=== PATIENT | female | born 1985 | race Caucasian/White ===

== ENCOUNTER 2017-01-05 00:59 | Emergency (ER) | payer BC, MEDICAID ==
[2017-01-05 01:43] VITALS: RESP 18; O2SAT 98
[2017-01-05] MEDS ORDERED: Sodium Chloride 0.9% 1,000 ML IV ONE (01:56)
[2017-01-05] MEDS ORDERED: Sodium Chloride 0.9% 1,000 ML ONE ×2 (02:27→03:59)
[2017-01-05 02:37] LABS: BASO % 0.5 % (0.0-2.0); EOS % 0.2 % (0.0-4.0); HEMATOCRIT 39.3 % (34.0-47.0); LYMPH # 2.4 K/uL (1.0-4.3); LYMPH % 27.9 % (20.0-40.0); MEAN CELL VOLUME 90.3 fL (81.0-99.0); MEAN CORPUSCULAR HGB CONC 35.5 g/dL (33.0-37.0); MEAN PLATELET VOLUME 8.2 fL (7.2-11.7); MONO # 0.7 K/uL (0.0-0.8); MONO % 7.5 % (0.0-10.0); NRBC % 0.1 % (0.0-2.0); RED CELL DISTRIBUTION WIDTH 12.5 % (11.5-14.5); WHITE BLOOD COUNT 8.8 K/uL (4.8-10.8)
[2017-01-05 02:49] LABS: CHLORIDE 104 mmol/L (98-107)
[2017-01-05 02:50] LABS: POTASSIUM 4.2 mmol/L (3.6-5.2); SODIUM 138 mmol/L (132-148)
[2017-01-05 02:52] LABS: AST/SGOT 41 U/L (14-36); BILIRUBIN,TOTAL 0.9 mg/dL (0.2-1.3); CARBON DIOXIDE 15 mmol/L (22-30); GFR AFRICAN-AMERICAN > 60
[2017-01-05 02:53] LABS: ALKALINE PHOSPHATASE 141 U/L (38-126); ALT/SGPT 66 U/L (9-52); BLOOD UREA NITROGEN 8 mg/dL (7-17); CALCIUM 9.4 mg/dl (8.6-10.4); GLUCOSE,RANDOM 74 mg/dL (65-105); TOTAL PROTEIN 8.3 g/dL (6.3-8.3)
[2017-01-05] MEDS ORDERED: Sodium Chloride 0.9% 1,000 ML IV STA (03:52)
[2017-01-05 04:37] LABS: RBC URINE 6 /hpf (0-3); URINE BACTERIA FEW (<OCC); URINE BILIRUBIN NEGATIVE (NEGATIVE); URINE BLOOD NEGATIVE (NEGATIVE); URINE COLOR Yellow (YELLOW); URINE GLUCOSE (UA) NORMAL (Normal); URINE KETONE 2+ mg/dL (NEGATIVE); URINE LEUKOCYTE ESTERASE TRACE Leu/uL (Negative); URINE PROTEIN 2+ mg/dL (NEGATIVE); WBC URINE 9 /hpf (0-5)
--- NOTE | 2017-01-05 05:21 | C.PDOC ---
History Of Present Illness Patient is a 31 year old female who presents to the ER with a complaint of vomiting since Tuesday. Patient was given Rx by her OB for Dicliges but with no improvement. Patient reports she is 7 weeks , . Denies abdominal pain, urinary symptoms, dizziness, fever, chills, UTI sx, vaginal bleeding or discharge. Time Seen by Provider: 01/05/17 01:51 Chief Complaint (Nursing): GI Problem History Per: Patient History/Exam Limitations: no limitations Onset/Duration Of Symptoms: Days (Since Tuesday) Current Symptoms Are (Timing): Still Present Quality Of Discomfort: Unable To Describe Associated Symptoms: Vomiting. denies: Fever, Chills, Urinary Symptoms, Other ( Abdominal pain) Exacerbating Factors: None Alleviating Factors: None Recent travel outside of the [place]: No Abnormal Vaginal Bleeding: No : 5 Para: 3 Past Medical History Reviewed: Historical Data, Nursing Documentation, Vital Signs Vital Signs: Last Vital Signs Temp 98.2 F 01/05/17 05:28 Pulse 94 H 01/05/17 05:28 Resp 18 01/05/17 05:28 BP 111/75 01/05/17 05:28 Pulse Ox 98 01/05/17 05:28 - Medical History PMH: No Chronic Diseases Surgical History: No Surg Hx Family History: States: Unknown Family Hx - Social History Hx Alcohol Use: No Hx Substance Use: No - Immunization History Hx Tetanus Toxoid Vaccination: No Hx Influenza Vaccination: No Hx Pneumococcal Vaccination: No Review Of Systems Constitutional: Negative for: Fever, Chills Gastrointestinal: Positive for: Vomiting. Negative for: Abdominal Pain Genitourinary: Negative for: Dysuria, Frequency, Incontinence, Hematuria Physical Exam - Physical Exam Appears: Non-toxic Skin: Normal Color, Warm, Dry Head: Atraumatic, Normacephalic Eye(s): bilateral: Normal Inspection, PERRL, Other (no pallor of conjunctivae) Ear(s): Left: Other, Bilateral: Normal Oral Mucosa: Moist Lips: Other (Dry) Throat: Normal, No Erythema, No Exudate Neck: Normal, Supple Chest: Symmetrical, No Tenderness Cardiovascular: Rhythm Regular, No Murmur Respiratory: Normal Breath Sounds, No Rales, No Rhonchi, No Wheezing Gastrointestinal/Abdominal: Bowel Sounds (normal), Soft, No Tenderness, No Distention, No Guarding, No Rebound Extremity: Normal ROM Extremity: Bilateral: Atraumatic Neurological/Psych: Oriented x3, Normal Speech, Normal Cognition Gait: Steady ED Course And Treatment - Laboratory Results Result Diagrams: 01/05/17 02:35 01/05/17 02:35 O2 Sat by Pulse Oximetry: 98 (Room air) Pulse Ox Interpretation: Normal Progress Note: IV fluids( 2 L Of NaCl) and zofran PO x 2 ordered. PO challenge given with success. Patient is resting comfortably, and is in no acute distress. Abdomen remains soft non tender. Patient was instructed to follow up with PMD in 1-2 days for further evaluation. Reevaluation Time: 05:36 Reassessment Condition: Improved Disposition Counseled Patient/Family Regarding: Diagnosis, Need For Followup, Rx Given - Disposition Referrals: Private OB, OB/ [facility] [Other] Disposition: HOME/ ROUTINE Disposition Time: 05:41 Condition: STABLE Additional Instructions: Please follow up with your OB Take small amount of fluids at a time/ crackers, plain bread, tea, juices Take meds as directed Return to er if worse Prescriptions: Ondansetron [Zofran Odt] 4 mg PO TID #14 odt Instructions: Hyperemesis Gravidarum (ED) - Clinical Impression Clinical Impression: Hyperemesis gravidarum - Scribe Statement The provider has reviewed the documentation as recorded by the Scribshahab Marie All medical record entries made by the Scribe were at my direction and personally dictated by me. I have reviewed the chart and agree that the record accurately reflects my personal performance of the history, physical exam, medical decision making, and the department course for this patient. I have also personally directed, reviewed, and agree with the discharge instructions and disposition.
[2017-01-05 05:34] VITALS: BP 111/75; PULSE 94; TEMP 98.2
== END 2017-01-05 05:48 | disposition home or self-care (01) ==
LOC: C.ER 00:59
DX: O21.0 Mild hyperemesis gravidarum (principal); Z3A.01 Less than 8 weeks gestation of pregnancy
CPT/HCPCS: 80053; 81001; 83690; 84702; 84703; 85025; 96361; 96374; 96376; 99285; J2405; J7040

== ENCOUNTER 2017-04-29 17:50 | Emergency (ER) | payer BC ==
[2017-04-29 18:13] VITALS: RESP 18; O2SAT 100
[2017-04-29] MEDS ORDERED: Sodium Chloride 0.9% 1,000 ML IV ONE (18:41)
[2017-04-29] MEDS ORDERED: Sodium Chloride 0.9% 1,000 ML ONE (18:45)
[2017-04-29 18:51] LABS: BASO # 0.1 K/uL (0.0-0.2); BASO % 0.9 % (0.0-2.0); EOS % 0.2 % (0.0-4.0); HEMATOCRIT 35.2 % (34.0-47.0); LYMPH # 3.1 K/uL (1.0-4.3); MEAN CELL VOLUME 88.4 fL (81.0-99.0); MEAN CORPUSCULAR HEMOGLOBIN 31.2 pg (27.0-31.0); MEAN CORPUSCULAR HGB CONC 35.2 g/dL (33.0-37.0); MEAN PLATELET VOLUME 8.6 fL (7.2-11.7); MONO # 0.5 K/uL (0.0-0.8); MONO % 7.2 % (0.0-10.0); RED CELL DISTRIBUTION WIDTH 12.2 % (11.5-14.5); WHITE BLOOD COUNT 6.5 K/uL (4.8-10.8)
[2017-04-29 18:59] LABS: CHLORIDE 101 mmol/L (98-107); POTASSIUM 3.7 mmol/L (3.6-5.2); SODIUM 133 mmol/L (132-148)
[2017-04-29 19:01] LABS: GFR AFRICAN-AMERICAN > 60
[2017-04-29 19:02] LABS: ALB/GLOB RATIO 1.2 (1.0-2.1); ALKALINE PHOSPHATASE 101 U/L (38-126); ALT/SGPT 45 U/L (9-52); AST/SGOT 20 U/L (14-36); BILIRUBIN,TOTAL 0.5 mg/dL (0.2-1.3); BLOOD UREA NITROGEN 5 mg/dL (7-17); CALCIUM 9.1 mg/dl (8.6-10.4); CARBON DIOXIDE 20 mmol/L (22-30); GLUCOSE,RANDOM 76 mg/dL (65-105); TOTAL PROTEIN 7.5 g/dL (6.3-8.3)
[2017-04-29 19:06] LABS: RBC URINE 831 /hpf (0-3); URINE BACTERIA RARE (<OCC); URINE BILIRUBIN NEGATIVE (NEGATIVE); URINE BLOOD 3+ (NEGATIVE); URINE COLOR Yellow (YELLOW); URINE GLUCOSE (UA) NORMAL (Normal); URINE KETONE 2+ mg/dL (NEGATIVE); URINE LEUKOCYTE ESTERASE NEG Leu/uL (Negative); URINE PROTEIN 2+ mg/dL (NEGATIVE); URINE UROBILINOGEN NORMAL mg/dL (0.2-1.0); WBC URINE 1 /hpf (0-5)
--- NOTE | 2017-04-29 20:07 | C.PDOC ---
History Of Present Illness Pt had a transvaginal US by her Auto Mechanic today that showed a live IUP. Later in the day she started having vaginal bleeding, but no clots or tissue. Time Seen by Provider: 04/29/17 19:03 Chief Complaint (Nursing): Female Genitourinary History Per: Patient Onset/Duration Of Symptoms: Hrs (today) Current Symptoms Are (Timing): Better Severity: Moderate Quality Of Discomfort: Cramping Alleviating Factors: None Additional History Per: Prior Records Abnormal Vaginal Bleeding: Yes Past Medical History Reviewed: Historical Data, Nursing Documentation, Vital Signs Vital Signs: Last Vital Signs Temp 98.0 F 04/29/17 20:15 Pulse 70 04/29/17 20:15 Resp 18 04/29/17 20:15 BP 93/60 L 04/29/17 20:15 Pulse Ox 100 04/29/17 20:15 - Medical History PMH: No Chronic Diseases Surgical History: No Surg Hx Family History: States: Unknown Family Hx - Social History Hx Tobacco Use: No Hx Alcohol Use: No Hx Substance Use: No - Immunization History Hx Tetanus Toxoid Vaccination: No Hx Influenza Vaccination: No Hx Pneumococcal Vaccination: No Review Of Systems Except As Marked, All Systems Reviewed And Found Negative. Constitutional: Negative for: Fever, Weakness Cardiovascular: Negative for: Chest Pain, Light Headedness Respiratory: Negative for: Shortness of Breath Gastrointestinal: Positive for: Nausea Genitourinary: Positive for: Vaginal Bleeding. Negative for: Dysuria Musculoskeletal: Negative for: Neck Pain Skin: Negative for: Rash Neurological: Negative for: Weakness, Numbness, Seizures Physical Exam - Physical Exam Appears: Non-toxic, No Acute Distress Skin: Normal Color, Warm, Dry, No Rash Head: Atraumatic, Normacephalic Eye(s): bilateral: Normal Inspection, PERRL, EOMI Neck: Normal ROM, Supple Cardiovascular: Rhythm Regular Respiratory: Normal Breath Sounds, No Accessory Muscle Use Gastrointestinal/Abdominal: Soft, No Tenderness Back: No CVA Tenderness Extremity: Normal ROM Neurological/Psych: Oriented x3, Normal Motor, Normal Sensation ED Course And Treatment - Laboratory Results Result Diagrams: 04/29/17 18:46 04/29/17 18:46 Lab Interpretation: No Acute Changes Urine POC: Positive O2 Sat by Pulse Oximetry: 100 Pulse Ox Interpretation: Normal Progress - Interventions Interventions:: Observation, Intravenous fluid - Medications Administered Oral: Acetaminophen Intravenous: Antiemetic - Data Reviewed Data Reviewed: Lab, Old records - Patient Status Patient status: Partially improved - Continuity of Care Discussed patient case with:: Patient, Family-HIPPA compliant, ED Nurse - Patient Plan Patient Plan: Discharge, F/U with PCP Disposition Counseled Patient/Family Regarding: Studies Performed, Diagnosis, Need For Followup, Rx Given - Disposition Referrals: Ibrahima Dwyer MD [Staff Provider] - Disposition: HOME/ ROUTINE Disposition Time: 21:13 Condition: STABLE Additional Instructions: Follow up with your Auto Mechanic doctor for further evaluation and treatment. Return to the ER if you develop dizziness, fever, heavy bleeding, worsening of symptoms or if you have any other concerns. Prescriptions: Ondansetron [Zofran] 4 mg PO Q8H PRN #15 tab PRN Reason: Nausea/Vomiting Instructions: Threatened Miscarriage (ED) Forms: [employer] (Bulgarian) - Clinical Impression Clinical Impression: Threatened
[2017-04-29 20:16] VITALS: TEMP 98
[2017-04-29 21:23] VITALS: BP 106/69; PULSE 81
== END 2017-04-29 21:22 | disposition home or self-care (01) ==
LOC: C.ER 17:50
DX: O20.0 Threatened abortion (principal); Z3A.00 Weeks of gestation of pregnancy not specified
CPT/HCPCS: 80053; 81001; 84702; 84703; 85025; 86850; 86900; 96361; 96374; 99285; J2405; J7040

== ENCOUNTER 2017-11-14 17:41 | Inpatient (IN) | payer BC ==
[2017-11-14] MEDS: Lactated Ringer's 1,000 ML IV SCH ×2 (18:42→19:45)
[2017-11-14] MEDS ORDERED: Penicillin G Potassium 5 MU in Dextrose 5% In Water 50 ML IV ONE (19:00)
[2017-11-14 19:03] LABS: BASO % 0.3 % (0.0-2.0); EOS % 0.5 % (0.0-4.0); HEMOGLOBIN 9.8 g/dL (11.0-16.0); LYMPH # 2.1 K/uL (1.0-4.3); LYMPH % 33.9 % (20.0-40.0); MEAN CELL VOLUME 84.4 fL (81.0-99.0); MEAN CORPUSCULAR HEMOGLOBIN 28.7 pg (27.0-31.0); MONO # 0.5 K/uL (0.0-0.8); MONO % 7.7 % (0.0-10.0); NEUT # 3.5 K/uL (1.8-7.0); NEUT % 57.6 % (50.0-75.0); NRBC % 0.1 % (0.0-2.0); RBC 3.4 Mil/uL (3.80-5.20); RED CELL DISTRIBUTION WIDTH 15.1 % (11.5-14.5); WHITE BLOOD COUNT 6.1 K/uL (4.8-10.8)
[2017-11-14 19:10] LABS: SQUAMOUS EPITHIAL 5 /hpf (0-5); URINE BILIRUBIN NEGATIVE (NEGATIVE); URINE BLOOD 1+ (NEGATIVE); URINE CLARITY Hazy (Clear); URINE COLOR Yellow (YELLOW); URINE GLUCOSE (UA) NORMAL (Normal); URINE LEUKOCYTE ESTERASE TRACE Leu/uL (Negative); URINE PROTEIN NEGATIVE (NEGATIVE); URINE UROBILINOGEN NORMAL mg/dL (0.2-1.0)
[2017-11-14] MEDS ORDERED: DiphenhydrAMINE 50 mg/ml Inj IVP STA (20:14)
[2017-11-14] MEDS ORDERED: Nalbuphine 20 mg/ml Inj (1 ml) IVP PRN (20:15)
[2017-11-14 20:31] LABS: ALB/GLOB RATIO 0.9 (1.0-2.1); ALBUMIN 3.2 g/dL (3.5-5.0); AST/SGOT 21 U/L (14-36); BLOOD UREA NITROGEN 8 mg/dL (7-17); CALCIUM 8.4 mg/dl (8.6-10.4); GFR AFRICAN-AMERICAN > 60; GFR NON-AFRICAN AMERICAN > 60
[2017-11-14 20:37] LABS: ALT/SGPT < 6 U/L (9-52)
[2017-11-14] MEDS ORDERED: DiphenhydrAMINE 50 mg/ml Inj IVP ONE (20:45)
[2017-11-14 21:36] LABS: RAPID PLASMA REAGIN NONREACTIVE (NONREACTIVE)
[2017-11-15] MEDS ORDERED: Fentanyl/Bupivacaine HCl 250 ML EPI ONE (00:12)
[2017-11-15] MEDS ORDERED: Bupivacaine HCl 0.5% PF (10 ml) Inj ONE (00:40)
[2017-11-15] MEDS ORDERED: Oxytocin 20 units in LR 2,000 ML IV ONE (06:27)
[2017-11-15 20:24] VITALS: RESP 20
[2017-11-16 08:05] LABS: BASO % 0.5 % (0.0-2.0); EOS # 0.1 K/uL (0.0-0.7); EOS % 1.4 % (0.0-4.0); HEMOGLOBIN 9.2 g/dL (11.0-16.0); LYMPH # 3.1 K/uL (1.0-4.3); LYMPH % 40.2 % (20.0-40.0); MEAN CELL VOLUME 84.6 fL (81.0-99.0); MEAN CORPUSCULAR HEMOGLOBIN 28.7 pg (27.0-31.0); MEAN PLATELET VOLUME 10.1 fL (7.2-11.7); MONO # 0.5 K/uL (0.0-0.8); NEUT % 50.9 % (50.0-75.0); NRBC % 0.1 % (0.0-2.0); RBC 3.19 Mil/uL (3.80-5.20); RED CELL DISTRIBUTION WIDTH 15.5 % (11.5-14.5); WHITE BLOOD COUNT 7.8 K/uL (4.8-10.8)
[2017-11-16] MEDS ORDERED: Benzocaine/Menthol 20%-0.5% Topical Spray (60 ml) EXT SCH (14:00)
--- NOTE | 2017-11-17 02:48 | PN ---
DATE: SUBJECTIVE: The patient has no complaints. OBJECTIVE: VITAL SIGNS: Stable. She is afebrile. ABDOMEN: Soft. Fundus is firm. Lochia is intact. EXTREMITIES: Nontender with a negative Balbir sign, and no evidence of DVT. CHEST: Clear. BREASTS: Reveal no engorgement. CARDIAC: Reveals normal heart sounds without any murmurs. LUNGS: Clear. ASSESSMENT: The patient is status post normal spontaneous vaginal delivery. PLAN: To encourage ambulation. Ibrahima Dwyer MD
[2017-11-17 17:14] VITALS: BP 124/74; PULSE 63; TEMP 97.5; O2SAT 100
--- NOTE | 2017-12-01 16:56 | DS ---
HOSPITAL COURSE: The patient is a 31-year-old female 3, para 2, who was admitted for induction. The patient underwent a normal spontaneous vaginal delivery on 11/15/2017, delivered a live male , Apgars 9 at one minute and 9 at five minutes. She was discharged home on day #2 on Vitafol Ultra, to be followed up in the office in six weeks. Ibrahima Dwyer MD
--- NOTE | 2017-12-02 10:24 | OBADHP ---
Datetime: 11/14/2017 18:09 Admit Comment, IP Provider: @ 40.3 wks GA sent by PMD for IOL reports pressure and crmaping pain, increasing intensity and freuqency, dneis lof, vb, +FM. 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: hxof ovarina cyst, lap pap 2016, dnies sti, fibroid PMH: dneis PSH: dneis FHX: non contibutory MEDS: PNVS NKDA SHX: negatiave eoth/tobacc/drugs A/P @ 40.3 wks GA iol gbs postive admit to pmd npo, ivf admission labs pnc gbs proophylxis cervidl pain manamgnet plan as per Dr Ibrahim, PMD Pelvic Type - PN: Adequate Extremities - PN: Normal Abdomen - PN: Normal Back - PN: Normal Breast - PN: Not Done Lungs - PN: Normal Heart - PN: Normal Thyroid - PN: Not Done Neurologic - PN: Normal HEENT - PN: Normal General - PN: Normal Presentation-Admit: Vertex FHR - Baseline A Provider: 125 Membranes, Provider: Intact Contraction Comments Provider: irregaulr Gestation - Est Wks by US: 40.3 Vital Signs Provider: Reviewed IP Chief Complaint: Uterine contractions NICHD Variability Prov Fetus A: Moderate 6-25bpm FHR Category Provider Fetus A: Category I NICHD Decel Fetus A IP Provider: None Dilatation, Provider: 1 Effacement, Provider: 30 Station, Provider: -3 Genitourinary Exam: Normal DTRs - PN: Normal EGA AdmitDate IP: 40.3 IP Adm Impression: Term, intrauterine IP Admit Plan: Admit to unit
--- NOTE | 2017-12-02 10:24 | OBDS ---
DELIVERY PERSONNEL Delivery Doctor: Marybeth Dwyer MD Historiographer: Nava Sexton RN Anesthesiologist: Dr. Paniagua MATERNAL INFORMATION Delivery Anesthesia: Epidural Medications in Delivery: Nubain and phenergan Estimated Blood Loss (ml): 250 Placenta Cultured: Yes Maternal Complications: None LABOR SUMMARY EDC: 11/11/2017 00:00 No. Babies in Womb: 1 Attempted: No Labor Anesthesia: Epidural LABOR INFORMATION Reason for Induction: Postterm Onset of Labor: 11/15/2017 00:00 Complete Dilatation: 11/15/2017 06:20 Cervical Ripening Agents: Cervidil Oxytocin: N/A Group B Beta Strep: Positive Antibiotics # of Doses: Pen G 3 doses Antibiotics Time of Last Dose: 4a.m Steroids Given: None Reason Steroids Not Administered: Not Applicable MEMBRANES Membranes Rupture Method: Spontaneous Rupture of Membranes: 11/15/2017 06:35 Length of Rupture (hrs): 0.82 Amniotic Fluid Color: Clear Amniotic Fluid Amount: Moderate Amniotic Fluid Odor: Normal STAGES OF LABOR Stage 1 hrs: 6 Stage 1 min: 20 Stage 2 hrs: 1 Stage 2 min: 4 Stage 3 hrs: 0 Stage 3 min: 3 Total Time in Labor hrs: 7 Total Time in Labor min: 27 VAGINAL DELIVERY Episiotomy: None Laceration Extension: First Degree Laceration Type: Perineal Laceration Repair: Yes Initial Vag Sponge Count: 10 Final Vag Sponge Count: 10 Initial Vag Sharps Count: 0 Final Vag Sharps Count: 1 Sponge Count Correct: Vaginal Sweep Performed Sharps Count Correct: Yes BABY A INFORMATION Delivery Date/Time: 11/15/2017 07:24 Method of Delivery: Vaginal Born in Route : No : N/A Forceps: N/A Vacuum Extraction: N/A Shoulder Dystocia : No SHOULDER DYSTOCIA BABY A Delivery Date/Time: 11/15/2017 07:24 PRESENTATION/POSITION BABY A Presentation: Cephalic Cephalic Presentation: N/A Vertex Position: Right Occipital Anterior Breech Presentation: N/A PLACENTA INFORMATION BABY A Placenta Delivery Time : 11/15/2017 07:27 Placenta Method of Delivery: Spontaneous Placenta Status: Delivered SCORES BABY A Heart Rate 1 min: >100 bpm Resp Effort 1 min: Good Cry Reflex Irritability 1 min: Cough or Sneeze or Pulls Away Muscle Tone 1 min: Active Motion Color 1 min: Body [place], Extremities Blue Resuscitation Effort 1 min: Tactile Stimulation SCORE 1 MIN: 9 Heart Rate 5 min: >100 bpm Resp Effort 5 min: Good Cry Reflex Irritability 5 min: Cough or Sneeze or Pulls Away Muscle Tone 5 min: Active Motion Color 5 min: Body [place], Extremities Blue SCORE 5 MIN: 9 INFANT INFORMATION BABY A Gestational Age at Delivery: 40.4 Gestational Status: Post-term Infant Outcome : Liveborn Infant Condition : Stable Sex: Male IDENTIFICATION/MEDS BABY A ID Band Number: [id number] ID Band Location: Left Leg; Left Arm Sensor Applied: Yes Sensor Number: [id number] Sensor Location : Cord Clamp Vitamin K Given : Aquamephyton 1 mg IM; Left Thigh Erythromycin Given: Given Both Eyes WEIGHT/LENGTH BABY A Birthweight (gms): 2915 Weight (lb): 6 Weight (oz): 7 Infant Length Inches: 20.25 Infant Length cms: 51.4 CORD INFORMATION BABY A No. Cord Vessels: 3 Nuchal Cord : N/A Nuchal Cord Other: N/A True Knot: N/A Cord pH Baby Arterial: N/A Cord pH Baby Venous: N/A Cord Blood Taken: Yes Banking/Donate Info: N/A Infant Suction: Mouth ASSESSMENT BABY A Infant Complications: None Physical Findings at Delivery: Within Normal Limits Infant Respirations: Appears Normal Clerical Adjudicator/ALS Called : No Care By: Seth York RN Transferred To: Remains with Mother
== END 2017-11-17 13:00 | disposition home or self-care (01) | DRG 775 ==
LOC: C.EROB 17:41 → C.4D 17:55 → C.4M 11-15 09:30
PROVIDERS: ADMIT Obstetrics & Gynecology Reproductive Endocrinology; ATTEND Obstetrics & Gynecology Reproductive Endocrinology
PROC: 10E0XZZ Delivery of Products of Conception, External Approach (ICD-10-PCS; principal; 2017-11-15)
DX: O99.824 Streptococcus B carrier state complicating childbirth (principal); Z3A.40 40 weeks gestation of pregnancy; Z37.0 Single live birth